=== PATIENT | female | born 1965 | race Caucasian/White ===

== ENCOUNTER → 2019-11-30 09:51 | Outpatient (CLI) | payer BC, SELFPAY ==
--- NOTE | ~2019-11-30 | MR_ITS ---
EXAMINATION: MR lower leg LT wo con DATE: 11/30/2019 10:41 INDICATION: Left lower leg pain and swelling and difficulty with walking 2 weeks post injury TECHNIQUE: Magnetic resonance imaging (MRI) of the left lower leg was performed without intravenous c ontrast. Sequences included axial T1-weighted FSE, axial T2-weighted FS FSE, coronal T1-weighted FSE , coronal fluid sensitive FSE STIR , sagittal T1-weighted FSE and sagittal fluid sensitive FSE STIR . COMPARISON: None. FINDINGS: Complex lenticular fluid collection collection which is T1 and T2 hyperintense which extends along th e superficial fascia of the anterior and lateral compartments of the left lower leg consistent with a hematoma in the setting of and internal degloving injury. There appear to be a couple associated tea rs in the superficial muscular fascia centered approximately 11-14 cm from the knee joint line and a second proximally 25 cm distal to the joint line or 15 cm cephalad to the tip of the lateral malleolu s. The underlying musculature appears normal with normal signal. Bone alignment is normal with normal marrow signal. No fracture or pathologic marrow replacing process. IMPRESSION: 1. Large hematoma along the superficial muscular fascia of the anterior and lateral compartments of t he left calf which appear to have focal tears consistent with Sanchez Jesus type internal degloving injury. Reviewed, dictated and finalized at location A. IMPRESSION: 1. Large hematoma along the superficial muscular fascia of the anterior and lat eral compartments of the left calf which appear to have focal tears consistent with Sanchez Jesus type internal degloving injury.
== END ==
PROVIDERS: Visit Provider Family Medicine
DX: M79.662 Pain in left lower leg (principal); S86.992A Other injury of unspecified muscle(s) and tendon(s) at lower leg level, left leg, initial encounter; X58.XXXA Exposure to other specified factors, initial encounter
CPT/HCPCS: 73718